=== PATIENT | female | born 1995 ===

== ENCOUNTER 2022-05-17 21:12 | Outpatient (CLI) | payer SELFPAY ==
[2022-05-17] MEDS ORDERED: LACTATED RINGERS 1,000 ML IV ONE (21:45)
[2022-05-17 22:16] LABS: Bilirubin,Urine NEG (Negative); Blood,Urine NEG (Negative); Color,Urine Yellow (Yellow); Hematocrit 30.9 % (30.3-42.9); Hemoglobin 10.1 gm/dl (10.1-14.3); Mean Corpuscular HGB Conc 33 % (30-34); Mean Corpuscular Volume 87 fl (79-97); Platelet Count 247 K/mm3 (140-440); Protein,Urine <15 mg/dL mg/dL (Negative); Red Blood Count 3.57 M/mm3 (3.65-5.03); Red Cell Distribution Width 14.5 % (13.2-15.2); Urobilinogen,Urine < 2 mg/dL (<2.0)
[2022-05-17 22:20] LABS: Bacteria,Urine 2+ /HPF (Negative); RBC,Urine < 1.0 /HPF (0.0-6.0); WBC,Urine < 1.0 /HPF (0.0-6.0)
--- NOTE | 2022-05-17 22:53 | Ultrasound Report ---
ULTRASOUND OBSTETRIC LIMITED ULTRASOUND BIOPHYSICAL PROFILE INDICATION / CLINICAL INFORMATION: mariana. - Clinical Gestational Age (GA) in weeks, days: Not given TECHNIQUE: Transabdominal. COMPARISON: None available. FINDINGS: BREATHING MOVEMENT = 2 GROSS BODY MOVEMENT = 2 TONE = 2 QUALITATIVE AMNIOTIC FLUID VOLUME = 2 TOTAL BIOPHYSICAL SCORE = 8/8 HEART RATE (beats per minute): 154 AMNIOTIC FLUID INDEX (cm) = 11.2 cm (normal = 7-24 cm) PRESENTATION: Cephalic. ADDITIONAL FINDINGS: None. IMPRESSION: 1. Biophysical Score = 8/8 2. Single living intrauterine gestation in cephalic presentation with normal amniotic fluid index. Martita foy OB ultrasound, as detailed above. Signer Name: Bg Del Toro MD Signed: 05/17/2022 10:48 PM Workstation Name: [email or web address]
[2022-05-17 23:38] VITALS: BP 115/59
== END 2022-05-18 | disposition home or self-care (01) ==
LOC: TRG 21:12 → APU 21:14 → TRG 05-18
PROVIDERS: ATTEND Obstetrics & Gynecology Gynecology
DX: O47.03 False labor before 37 completed weeks of gestation, third trimester (principal); O36.8130 Decreased fetal movements, third trimester, not applicable or unspecified; Z3A.34 34 weeks gestation of pregnancy
CPT/HCPCS: 36415; 59025; 76815; 76819; 81001; 82962; 84112; 85027